=== PATIENT | male | born 2000 | race Caucasian/White ===

== ENCOUNTER 2021-05-14 11:33 | Emergency (ER) | payer OTHER ==
--- NOTE | 2021-05-14 12:41 | EDM.PDOC ---
ED HPI GENERAL MEDICAL PROBLEM - General Chief Complaint: Gastrointestinal Problem Stated Complaint: THROWING UP,WARM Time Seen by Provider: 05/14/21 12:27 Source of Information: Reports: Patient History Limitations: Reports: No Limitations - History of Present Illness INITIAL COMMENTS - FREE TEXT/NARRATIVE: Patient presents with an episode of vomiting, chest pain, and diaphoresis that lasted about 15 minutes. He was waiting to get an xray for ortho here at the clinic/hospital when this started. He vomited in the bathroom then sat down on the floor, started sweating and having pain in lower sternum and epigastrium. He now is feeling fine and completely normal. He has never had anything like this before; no history of heartburn or GERD. He denies any marijuana or other drug use, or alcohol use. He does have an odor suspicious of marijuana use to me, possibly just the diaphoretic body odor. He hadn't eaten breakfast so ate two slices of pizza just before coming to clinic appointment. - Related Data Allergies Allergy/AdvReac Type Severity Reaction Status Date / Time No Known Drug Allergies Allergy Cannot Verified 05/14/21 11:43 Remember Home Meds: Home Meds . [No Known Home Meds] 05/14/21 [History] Past Medical History - Past Health History Medical/Surgical History: Denies Medical/Surgical History - Infectious Disease History Infectious Disease History: Reports: None Social & Family History - Tobacco Use Tobacco Use Comment: nicotine pouches - Caffeine Use Caffeine Use: Reports: Energy Drinks - Recreational Drug Use Recreational Drug Use: No ED ROS GENERAL - Review of Systems Review Of Systems: See Below Constitutional: Denies: Fever, Chills, Malaise, Weakness HEENT: Denies: Ear Pain, Throat Pain, Vision Change Respiratory: Denies: Shortness of Breath, Cough Cardiovascular: Reports: Chest Pain (gone now). Denies: Lightheadedness, Syncope GI/Abdominal: Reports: Abdominal Pain (gone now), Vomiting. Denies: Diarrhea : Denies: Dysuria, Flank Pain Musculoskeletal: Denies: Neck Pain, Shoulder Pain, Arm Pain, Back Pain Skin: Reports: Diaphoresis. Denies: Cyanosis, Jaundice, Mottled, Pallor Neurological: Denies: Confusion, Dizziness, Headache, Seizure, Syncope, Trouble Speaking, Difficulty Walking Psychiatric: Denies: Agitation, Anxiety, Confusion ED EXAM, GI/ABD - Physical Exam Exam: See Below Exam Limited By: No Limitations General Appearance: Alert, WD/WN, No Apparent Distress Eyes: Bilateral: Normal Appearance, EOMI Ears: Normal External Exam, Hearing Grossly Normal Nose: Normal Inspection, No Blood Throat/Mouth: Normal Inspection, Normal Lips, Normal Oropharynx, Normal Voice, No Airway Compromise Head: Atraumatic, Normocephalic Neck: Normal Inspection, Full Range of Motion Respiratory/Chest: No Respiratory Distress, Lungs Clear, Normal Breath Sounds, No Accessory Muscle Use Cardiovascular: Regular Rate, Rhythm, No Murmur GI/Abdominal Exam: Normal Bowel Sounds, Soft, Non-Tender, No Organomegaly, No Distention Back Exam: Normal Inspection, Full Range of Motion Extremities: Normal Inspection, Normal Range of Motion Neurological: Alert, Oriented, Normal Cognition, No Motor/Sensory Deficits Psychiatric: Normal Affect, Normal Mood Skin Exam: Warm, Dry, Intact, Normal Color, No Rash. No: Diaphoretic (recently though as evidenced by his shirt on the back) #1 Interpretation EKG Date: 05/14/21 Rate (Beats/Min): [address] [place]: Normal P-Wave: Present QRS: Normal ST-T: Normal QT: Normal Course - Vital Signs Last Recorded V/S: Last Vital Signs Temp 96.7 F L 05/14/21 11:44 Pulse 55 L 05/14/21 12:37 Resp 18 05/14/21 12:37 BP 121/78 05/14/21 12:37 Pulse Ox 97 05/14/21 12:37 - Orders/Labs/Meds Orders: Active Orders 24 hr Category Date Time Status EKG Documentation Completion [RC] ASDIRECTED Care 05/14/21 12:36 Ordered EKG 12 Lead [EK] Stat Ther 05/14/21 12:34 Ordered Labs: Laboratory Tests 05/14/21 05/14/21 Range/Units 12:57 12:57 WBC 8.70 (5.00-10.00) 10^3/uL RBC 4.78 (4.50-6.00) 10^6/uL Hgb 13.4 (13.0-17.0) g/dL Hct 40.2 (40.0-52.0) % MCV 84.1 (82.0-92.0) fL MCH 28.0 (27.0-31.0) pg MCHC 33.3 (32.0-36.0) g/dL RDW 12.2 (11.5-14.5) % Plt Count 211 (150-400) 10^3/uL MPV 10.1 (7.4-10.4) fL Immature Gran % (Auto) 0.0 (0.0-5.0) % Neut % (Auto) 74.1 H (50.0-70.0) % Lymph % (Auto) 15.9 L (20.0-40.0) % Becker % (Auto) 8.4 H (2.0-8.0) % Eos % (Auto) 1.1 (1.0-3.0) % Baso % (Auto) 0.5 (0.0-1.0) % Neut # (Auto) 6.45 (2.50-7.00) 10^3/uL Lymph # (Auto) 1.38 (1.00-4.00) 10^3/uL Becker # (Auto) 0.73 (0.10-0.80) 10^3/uL Eos # (Auto) 0.10 (0.10-0.30) 10^3/uL Baso # (Auto) 0.04 (0.00-0.10) 10^3/uL Immature Gran # (Auto) 0.00 (0.00-0.50) 10^3/uL Sodium 140 (136-145) mmol/L Potassium 4.1 (3.5-5.1) mmol/L Chloride 101 (98-107) mmol/L Carbon Dioxide 32.7 H (21.0-32.0) mmol/L Anion Gap 10.4 (5-15) mmol/L BUN 14 (7-18) mg/dL Creatinine 0.92 (0.51-1.17) mg/dL Est Cr Clr Drug Dosing 135.28 mL/min Estimated GFR (MDRD) > 60 mL/min Glucose 75 (70-140) mg/dL Calcium 9.2 (8.7-10.3) mg/dL Total Bilirubin 0.5 (0.2-1.0) mg/dL AST 26 (15-37) U/L ALT 30 (14-63) U/L Alkaline Phosphatase 56 (46-116) U/L Total Protein 7.2 (6.4-8.2) g/dL Albumin 4.34 (3.40-5.00) g/dL - Re-Assessments/Exams Free Text/Narrative Re-Assessment/Exam: 05/14/21 13:49 Labs and EKG are normal. Discussed findings with patient. Advised follow up with his PCP if any recurrence of persisting of symptoms. He is feeling fine now. Discharged to home in stable condition. Departure - Departure Time of Disposition: 13:47 Disposition: Home, Self-Care 01 Condition: Good Clinical Impression: N&V (nausea and vomiting) - Discharge Information Referrals: Chioma Alan MD [Primary Care Provider] - Forms: ED Department Discharge Additional Instructions: Drink 8 cups of water daily. If this returns or persists, follow up with your PCP for further evaluation. Return to ER as needed. Sepsis Event Note (ED) - Evaluation Sepsis Screening Result: No Definite Risk - Focused Exam Vital Signs: Vital Signs Temp Pulse Resp BP Pulse Ox 05/14/21 12:37 55 L 18 121/78 97 05/14/21 12:05 60 18 123/84 05/14/21 11:44 96.7 F L 57 L 18 118/81 99 - My Orders Last 24 Hours: My Active Orders 05/14/21 12:34 EKG 12 Lead [EK] Stat 05/14/21 12:36 EKG Documentation Completion [RC] ASDIRECTED - Assessment/Plan Last 24 Hours: My Active Orders 05/14/21 12:34 EKG 12 Lead [EK] Stat 05/14/21 12:36 EKG Documentation Completion [RC] ASDIRECTED
[2021-05-14 13:26] LABS: ANION GAP 10.4 mmol/L (5-15); CHLORIDE,CL 101 mmol/L (98-107); SODIUM,NA 140 mmol/L (136-145)
== END 2021-05-14 13:55 | disposition home or self-care (01) ==
LOC: KA.ED 11:33
DX: R11.2 Nausea with vomiting, unspecified (principal); Z72.0 Tobacco use
CPT/HCPCS: 36415; 80053; 85025; 93005; 99284; 99285-25